=== PATIENT | male | born 1990 | race African-American/Black ===

== ENCOUNTER 2019-03-07 11:28 | Emergency (ER) | payer OTHER ==
[2019-03-07 11:34] VITALS: TEMP 98.2; BMI 36.0
[2019-03-07] MEDS ORDERED: CEFAZOLIN 2 GM in DEXTROSE 5%-WATER - 50 ML IVPB ONE (11:47)
[2019-03-07] MEDS ORDERED: SODIUM CHLORIDE IVPB ONE (11:47)
[2019-03-07] MEDS ORDERED: GENTAMICIN IVPB ONE (11:47)
[2019-03-07] MEDS ORDERED: morphine SULFATE 4 MG/ML VIAL IVPUSH ONE (11:49)
[2019-03-07] MEDS ORDERED: morphine SULFATE 4 MG/ML VIAL ONE (12:12)
[2019-03-07 12:13] LABS: BASO % 0.3 % (0-2.0); EOS % 0.7 % (0-4.5); HEMATOCRIT 42.6 % (35.4-49); HEMOGLOBIN 13.8 GM/dL (11.7-16.9); LYMPH % 25.8 % (8-40); MCH 26.3 pg (25.7-33.7); MCHC 32.3 g/dl (32.0-35.9); MEAN CELL VOLUME 81.3 fl (80-96); MEAN PLT VOLUME 7.8 fl (7.5-11.1); MONO % 7.3 % (3.8-10.2); NEUT % 65.9 % (42.8-82.8); PLATELET COUNT 330 K/MM3 (134-434); RBC 5.24 M/mm3 (4.00-5.60); RDW 14.9 % (11.9-15.9)
[2019-03-07] MEDS ORDERED: CEFAZOLIN 1 GM/D5W 2 GM/100 ML BAG ONE (12:13)
[2019-03-07 12:26] LABS: ANION GAP 8 MMOL/L (8-16); BLOOD UREA NITROGEN 15 mg/dL (7-18); CHLORIDE 106 mmol/L (98-107); CO2 25 mmol/L (21-32); GLUCOSE,RANDOM 108 mg/dL (74-106); INR 1.01 (0.83-1.09); PROTHROMBIN TIME (PATIENT) 11.9 SEC (9.7-13.0); SODIUM 140 mmol/L (136-145)
--- NOTE | 2019-03-07 12:46 | PDOC ---
History of Present Illness <TyreseLexii trujillo - Last Filed: 03/07/19 12:54> - General History Source: Patient Exam Limitations: No Limitations - History of Present Illness Initial Comments: 03/07/19 12:38 This patient is a 28 year old RH male with no significant PMHx, who presents s/ p left index and middle finger injuries at approx 11:20 am. 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 He states that he stuck his gloved hands in the mixer and didnt realize that the blades were still spinning. He states that he wasnt able to retrieve the piece of his finger that was sliced off and is probably still in the mixer. He states that is pain is 6-7/10 and he is experiencing some numbness and tingling in his left hand however he is able to move his fingers. Last tetanus was 2-3 yrs ago. Allergies to meds: denies No medications. <Rosa Hoskins - Last Filed: 03/07/19 13:03> - General Chief Complaint: Injury Stated Complaint: LT FINGER INJURY Time Seen by Provider: 03/07/19 11:37 Past History <TyreseLexii trujillo - Last Filed: 03/07/19 12:54> - Past Medical History COPD: No Thyroid Disease: No - Immunization History Immunization Up to Date: Yes - Suicide/Smoking/Psychosocial Hx Smoking History: Never smoked Information on smoking cessation initiated: No Hx Alcohol Use: No Drug/Substance Use Hx: No <Rosa Hoskins - Last Filed: 03/07/19 13:03> - Past Medical History Allergies/Adverse Reactions: Allergies Allergy/AdvReac Type Severity Reaction Status Date / Time No Known Allergies Allergy Verified 03/07/19 11:58 Review of Systems - Review of Systems Able to Perform ROS?: Yes Comments:: 03/07/19 12:46 ROS: Constitutional: no fevers or chills. HEENT: no headache or dizziness. CVS: no cp or syncope. Resp: no sob. Gastrointestinal: no abdominal pain, nausea or vomiting. MUSCULOSKELETAL: No joint pain and swelling. No neck or back pain. +finger pain. SKIN: + left 2nd digit amputation. + superficial lac to left 3rd digit. + abrasion to left 3rd finger. +wounds. HEMATOLOGIC/LYMPHATIC: No anemia, easy bruising/bleeding, or history of blood clots. NEUROLOGIC: No headache, dizziness, LOC or altered mental status. No weakness, + numbness or tingling. Allergic/Immunologic: no allergies All other systems reviewed and negative, or as documented in HPI. <Rosa Hoskins Sanchez - Last Filed: 03/07/19 13:03> *Physical Exam - Vital Signs Last Vital Signs Temp Pulse Resp BP Pulse Ox 98.2 F 89 18 100/51 L 98 03/07/19 11:30 03/07/19 11:30 03/07/19 11:30 03/07/19 11:30 03/07/19 11:30 <Lexii Xiong - Last Filed: 03/07/19 12:54> - Vital Signs Last Vital Signs Temp Pulse Resp BP Pulse Ox 98.2 F 89 18 100/51 L 98 03/07/19 11:30 03/07/19 11:30 03/07/19 11:30 03/07/19 11:30 03/07/19 11:30 - Physical Exam Comments: 03/07/19 12:50 PE: General: NAD Resp: no respiratory distress Cards: 2+ radialis pulses bilaterally, no edema Vascular: 2+ radialis pulses symmetric and equal. Neuro: distal paleology teacher strength 5/5. sensation grossly intact in median/radial/ ulnar distribution. MSK: soft compartments, Cap refill <2 sec. 2+ radialis pulses bilaterally and symmetric. FDS intact to left index finger, Crush injuries to left index and middle fingers, + Traumatic left distal phalangeal amputation at DIP with exposed bone and skin flap, mild bleeding. Abrasions to distal part of nail bed to left middle finger , left middle finger FDS/FDP intact, nailbed intact. ROM limited due to amputation injury of left 2nd finger. Skin: color normal color, warm and well perfused. +mild bleeding from left index finger distally at amputation site, +exposed phalangeal bone. <Rosa Hoskins Sanchez - Last Filed: 03/07/19 13:03> ED Treatment Course - LABORATORY CBC & Chemistry Diagram: 03/07/19 11:51 03/07/19 11:51 - ADDITIONAL ORDERS Additional order review: Laboratory Results 03/07/19 03/07/19 11:51 11:51 PT with INR 11.90 INR 1.01 Sodium 140 Potassium 4.0 Chloride 106 Carbon Dioxide 25 Anion Gap 8 BUN 15 Creatinine 1.0 Creat Clearance w eGFR 87.74 Random Glucose 108 H Calcium 9.0 03/07/19 11:51 RBC 5.24 MCV 81.3 MCHC 32.3 RDW 14.9 MPV 7.8 Neutrophils % 65.9 Lymphocytes % 25.8 Monocytes % 7.3 Eosinophils % 0.7 Basophils % 0.3 - Medications Given in the ED: ED Medications Discontinued Medications Generic Name Dose Route Start Last Admin Trade Name Freq PRN Reason Stop Dose Admin Cefazolin Sodium 2 gm/ 50 mls @ 100 mls/hr 03/07/19 11:47 03/07/19 12:12 Dextrose IVPB 03/07/19 12:16 100 mls/hr ONCE ONE Administration Gentamicin Sulfate 660 mg/ 266.5 mls @ 266.5 mls/hr 03/07/19 11:47 03/07/19 12:39 Sodium Chloride IVPB 03/07/19 12:46 266.5 mls/hr ONCE ONE Administration Protocol Morphine Sulfate 4 mg 03/07/19 11:49 03/07/19 12:12 Morphine Sulfate IVPUSH 03/07/19 11:50 4 mg ONCE ONE Administration <Lexii Xiong - Last Filed: 03/07/19 12:54> - LABORATORY CBC & Chemistry Diagram: 03/07/19 11:51 03/07/19 11:51 - ADDITIONAL ORDERS Additional order review: Laboratory Results 03/07/19 03/07/19 11:51 11:51 PT with INR 11.90 INR 1.01 Sodium 140 Potassium 4.0 Chloride 106 Carbon Dioxide 25 Anion Gap 8 BUN 15 Creatinine 1.0 Creat Clearance w eGFR 87.74 Random Glucose 108 H Calcium 9.0 03/07/19 11:51 RBC 5.24 MCV 81.3 MCHC 32.3 RDW 14.9 MPV 7.8 Neutrophils % 65.9 Lymphocytes % 25.8 Monocytes % 7.3 Eosinophils % 0.7 Basophils % 0.3 - Medications Given in the ED: ED Medications Discontinued Medications Generic Name Dose Route Start Last Admin Trade Name Freq PRN Reason Stop Dose Admin Cefazolin Sodium 2 gm/ 50 mls @ 100 mls/hr 03/07/19 11:47 03/07/19 12:12 Dextrose IVPB 03/07/19 12:16 100 mls/hr ONCE ONE Administration Morphine Sulfate 4 mg 03/07/19 11:49 03/07/19 12:12 Morphine Sulfate IVPUSH 03/07/19 11:50 4 mg ONCE ONE Administration <Rosa Hoskins - Last Filed: 03/07/19 13:03> Medical Decision Making - Medical Decision Making 03/07/19 12:50 hpi as documented VS wnl +traumatic amputation of left index finger, RH dominant. NVI. +Type III open fx of left index finger with assessment of FDS intact, + exposed phalangeal bone area cleaned with sterile water soaks, Wet to dry dressing basic labs, IV leukocytosis noted, likely reactive and stress response; normal lytes and coags tdap up to date <5 years Ancef 2g and gentamicin 7mg/kg dosing. NPO hands cs to Dr Santiago at 1148AM - no answer. called to 2nd call, Dr Cano, unavailable for operative fixation and assessment with type III open fx/ traumatic amputation. [facility] transfer, accepted by hand surgeon Dr Garza, discussed case, at 1215pm. agreeable for transfer, to the ED for revision in the ED. transfer consent form obtained with pt, agreeable, signed consent with chart 03/07/19 13:03 <Rosa Hoskins - Last Filed: 03/07/19 13:03> *DC/Admit/Observation/Transfer - Attestations Scribe Attestion: 03/07/19 12:55 Documentation prepared by Lexii Xiong, acting as bilingual medical receptionist for Rosa Hoskins MD. <Leixi Xiong - Last Filed: 03/07/19 12:54> - Discharge Dispostion Decision to Admit order: No - Transfer to Acute Care Facility Receiving Facility: [facility]. Accepting Physician:: Dr Garza, Hand surgery Transfer comment: 03/07/19 12:54 to ED for revision of amputated left finger, given abx, npo and basic labs txs performed - Attestations Physician Attestion: 03/07/19 12:54 I, Rosa Hoskins MD, attest that this document has been prepared under my direction and personally reviewed by me in its entirety. I further attest, that it accurately reflects all work, treatment, procedures and medical decision -making performed by me. <Rosa Hoskins - Last Filed: 03/07/19 13:03> Diagnosis at time of Disposition: Open fracture of finger of left hand Qualifiers: Encounter type: initial encounter Finger: index finger Phalanx: distal Fracture alignment: nondisplaced Qualified Code(s): S62.661B - Nondisplaced fracture of distal phalanx of left index finger, initial encounter for open fracture Amputation finger Qualifiers: Encounter type: initial encounter Qualified Code(s): S68.119A - Complete traumatic metacarpophalangeal amputation of unspecified finger, initial encounter - Discharge Dispostion Disposition: TRANSFER ACUTE CARE/OTHER HOSP Condition at time of disposition: Fair
[2019-03-07 14:22] VITALS: BP 137/86; PULSE 64
== END 2019-03-07 13:58 | disposition short-term general hospital (02) ==
LOC: JER 11:28
PROC: 3E03329 Introduction of Other Anti-infective into Peripheral Vein, Percutaneous Approach (ICD-10-PCS; principal; 2019-03-07)
PROC: 3E03329 Introduction of Other Anti-infective into Peripheral Vein, Percutaneous Approach (ICD-10-PCS; 2019-03-07)
PROC: 3E033NZ Introduction of Analgesics, Hypnotics, Sedatives into Peripheral Vein, Percutaneous Approach (ICD-10-PCS; 2019-03-07)
DX: S68.621A Partial traumatic transphalangeal amputation of left index finger, initial encounter (principal); S62.661B Nondisplaced fracture of distal phalanx of left index finger, initial encounter for open fracture; S60.413A Abrasion of left middle finger, initial encounter; W31.89XA Contact with other specified machinery, initial encounter; Y93.89 Activity, other specified; Y92.69 Other specified industrial and construction area as the place of occurrence of the external cause; Y99.0 Civilian activity done for income or pay
CPT/HCPCS: 36415; 80048; 85025; 85610; 86850; 86900; 86901; 99284-25